=== PATIENT | male | born 2000 | race Caucasian/White ===

== ENCOUNTER 2022-08-17 12:49 | Emergency (ER) | payer MEDICAID ==
[~2022-08-17] VITALS: Ht 165.1 cm; Wt 74.8 kg
[2022-08-17] MEDS ORDERED: CEPH500C2 PO (14:38)
[2022-08-17] MEDS ORDERED: SULF1TAB42 PO (14:38)
[2022-08-17] MEDS ORDERED: MUPI22OI2 TP (14:39)
[2022-08-17] MEDS ORDERED: NAPR-1023 PO (14:39)
[2022-08-17] MEDS ORDERED: PENICILLIN G BENZATHINE LA 600,000 UNITS/ML SYG IM ONE (15:00)
[2022-08-17 15:29] VITALS: BP 108/60
== END 2022-08-17 15:39 | disposition home or self-care (01) ==
LOC: EDH 12:49
DX: L03.211 Cellulitis of face (principal)
CPT/HCPCS: 99283; 96372; J0561